=== PATIENT | female | born 1995 ===

== ENCOUNTER 2017-02-04 21:44 | Emergency (ER) | payer OTHER ==
[2017-02-04 23:44] VITALS: BP 99/60
--- NOTE | 2017-04-08 09:17 | ED ---
Abdominal Pain/Female - HPI Summary HPI Summary: Pt states was hit in the stomach with a football and needs it checked. Pain / . pt to room 1d a this time, denies all pain, states everything is resolved just wanted to be checked out after being hit in the abdomen by a football she and friends were tossing. No difficulty breathing. No blood in urine or stool. All pain as resolved. - History of Current Complaint Chief Complaint: EDAbdPain Stated Complaint: ABD PAIN AFTER BEING HIT WITH BALL Hx Obtained From: Patient ?: No Onset/Duration: Sudden Onset Timing: Minutes Severity Initially: Moderate Severity Currently: None Pain Intensity: 0 Pain Scale Used: 0-10 Numeric Location: Epigastric Radiates: No Character: Dull Aggravating Factor(s): Nothing Alleviating Factor(s): Nothing, Spontaneous Resolution Associated Signs and Symptoms: Positive: Negative PMH/Surg Hx/FS Hx/Imm Hx Previously Healthy: Yes Infectious Disease History: No Infectious Disease History: Denies: Traveled Outside the [place] in Last 30 Days - Family History Known Family History: Positive: None - Social History Occupation: Student Lives: Alone Alcohol Use: None Substance Use Type: Reports: None Smoking Status (MU): Never Smoked Tobacco Review of Systems All Other Systems Reviewed And Are Negative: Yes Physical Exam Triage Information Reviewed: Yes Vital Signs On Initial Exam: Initial Vitals Temp Pulse Resp BP Pulse Ox 98 F 95 18 128/66 100 02/04/17 21:54 02/04/17 21:54 02/04/17 21:54 02/04/17 21:54 02/04/17 21:54 Vital Signs Reviewed: Yes Appearance: Positive: Well-Appearing, No Pain Distress, Well-Nourished Skin: Positive: Warm, Skin Color Reflects Adequate Perfusion, Dry, Soft Head/Face: Positive: Normal Head/Face Inspection Eyes: Positive: EOMI, BRIDGETT, Conjunctiva Clear ENT: Positive: Hearing grossly normal Respiratory/Lung Sounds: Positive: Clear to Auscultation, Breath Sounds Present Cardiovascular: Positive: RRR Abdomen Description: Positive: Nontender Bowel Sounds: Positive: Present Musculoskeletal: Positive: Strength/ROM Intact. Negative: Edema Left, Edema Right Neurological: Positive: Sensory/Motor Intact, Alert, Oriented to Person Place, Time, NV Bundle Intact Distally, Normal Gait Psychiatric: Positive: Affect/Mood Appropriate AVPU Assessment: Alert Diagnostics - Vital Signs Vital Signs Temp Pulse Resp BP Pulse Ox 02/04/17 23:42 99.1 F 64 18 99/60 99 02/04/17 21:54 98 F 95 18 128/66 100 - Laboratory Lab Statement: Any lab studies that have been ordered have been reviewed, and results considered in the medical decision making process. Abdominal Pain Fem Course/Dx - Diagnoses Differential Diagnosis: Positive: ACS, Bowel Obstruction, Other Provider Diagnoses: Abdominal pain Discharge - Discharge Plan Condition: Stable Disposition: HOME [facility] - Additional Instructions: Please follow-up with [facility] as needed. Return to the emergency department if symptoms worsen.
== END 2017-02-05 00:12 | disposition home or self-care (01) ==
LOC: ED 21:44
DX: R10.9 Unspecified abdominal pain (principal)
CPT/HCPCS: 99282